=== PATIENT | female | born 1985 | race Caucasian/White ===

== ENCOUNTER 2024-04-16 19:15 | Day surgery (SDC) | payer BC, SELFPAY ==
[2024-04-16 19:16] VITALS: BMI 34.9
--- NOTE | 2024-04-16 19:33 | EKG_ITS ---
[facility] Test Date: 2024-04-16 Pat Name: GUSTABO HERNANDEZ Department: Room: - Gender: Female [employer] Builder: : 1985 Requested By: Alf Mcgarry Order Number: [id number] Reading MD: Alf Mcgarry Measurements Intervals [place] Rate: 93 P: 68 LA: 153 QRS: 24 QRSD: 89 T: 47 QT: 357 QTc: 446 Interpretive Statements SINUS RHYTHM NONSPECIFIC ST & T-WAVE ABNORMALITY Compared to ECG 11/14/2021 09:30:07 Sinus tachycardia no longer present T-wave abnormality still present /store/S0/[id number].pdf
--- NOTE | 2024-04-16 19:39 | XR_ITS ---
Examination: CT abdomen and pelvis without contrast. Coronal 3-D reconstructions. Sagittal 2-D reconstructions. Date and time of exam:April 16, 2024 at 2138 hrs. Indications: Onset right-sided flank pain beginning last night CTDI: vol (mGy): 12.9 DLP: (mGycm): 848 Technique: Axial images of the abdomen have been obtained, 3 mm slice thickness Intravenous contrast material has not been administered. Low dose protocols were performed. One or more of the following dose reduction techniques were used; automated exposure control, adjustment of the mA and/or KV according to patient size, use of iterative reconstruction technique. Findings: No focal liver or splenic lesions Cholelithiasis No pancreatic or adrenal mass No renal or ureteral calculi, no hydronephrosis Aorta normal size Absent appendix 8mm fat-containing umbilical hernia No bowel obstruction or diverticulitis Anteverted uterus Urinary bladder intact No adnexal mass Impression: Cholelithiasis, recommend gallbladder sonography to exclude gallbladder wall thickening No renal or ureteral calculi, no hydronephrosis Absent appendix No bowel obstruction or diverticulitis
--- NOTE | 2024-04-16 19:40 | PD.EDRME ---
Rapid Medical Screening Exam RME Arrival date/time: 04/16/24 19:15 39F with history of PE (likely COVID-induced and no longer on AC) presents to ED with 2 days of R flank pain and dysuria. While there is some SOB, she think it's from the pain. It feels different than when she had the PE. Chief Complaint: Back Pain/Injury
[2024-04-16 19:42] VITALS: BP 150/92; PULSE 100; RESP 18; TEMP 37.1; O2SAT 98
[2024-04-16] MEDS: KETOROLAC INJ 60 MG/2 ML VIAL IM (19:54)
[2024-04-16 20:04] LABS: Basophils # (Auto) 0.1 Thou/mm3 (0.0-0.2); Basophils % (Auto) 0 % (0-2.5); Eosinophils # (Auto) 0.1 Thou/mm3 (0.0-0.5); Eosinophils % (Auto) 1 % (0-10); Hematocrit 31.3 % (36.0-46.0); Hemoglobin 9.5 g/dL (12.0-16.0); Immature Granulocytes % (Auto) 0 % (0-0); Immature Granulocytes Auto 0.04 Thou/mm3 (0.00-0.00); Lymphocytes # (Auto) 3.8 Thou/mm3 (1.0-4.8); Lymphocytes % (Auto) 29 % (10-50); Mean Corpuscular HGB Conc 30.4 g/dl (31.0-37.0); Mean Corpuscular Hemoglobin 22.5 pg (25.0-35.0); Mean Corpuscular Volume 74 fL (80-100); Monocytes # (Auto) 0.8 Thou/mm3 (0.0-0.8); Monocytes % (Auto) 6 % (0-12); Neutrophils # (Auto) 8.6 Thou/mm3 (1.8-7.7); Neutrophils % (Auto) 64 % (37-80); Nucleated Red Blood Cell % 0 /100 WBC (0); Platelet Count 429 Thou/mm3 (140-440); RDW Standard Deviation 44.5 fL (36.4-46.3); Red Blood Count 4.23 Miln/mm3 (4.00-5.20); White Blood Count 13.4 Thou/mm3 (3.6-11.0)
[2024-04-16 20:27] LABS: Alanine Aminotransferase 61 U/L (10-49); Albumin, Serum 4.6 gm/dL (3.5-5.0); Albumin/Globulin Ratio 1.5 (1.2-2.2); Alkaline Phosphatase 84 U/L (46-116); Anion Gap 7 (7-16); Aspartate Amino Transferase 36 U/L (0-34); BUN/Creatinine Ratio 11 Ratio (12-20); Bilirubin,Total 0.6 mg/dL (0.3-1.2); Blood Urea Nitrogen 10 mg/dL (9-23); Calcium 9.4 mg/dL (8.3-10.6); Calcium (Corrected) 9.4 mg/dL (8.5-10.1); Carbon Dioxide 28.1 mMol/L (20.0-31.0); Chloride 104 mMol/L (98-107); Creatinine (Component) 0.9 mg/dL (0.6-1.3); Estimated Creatinine Clearance 96.7 mL/min (>60); Globulin 3.1 gm/dL (2.3-3.5); Glucose 132 mg/dL (74-106); Lipase 32 U/L (12-53); Osmolality,Calculated 278 (275-295); Potassium 3.4 mMol/L (3.4-5.1); Sodium 139 mMol/L (136-145); Total Protein 7.7 gm/dL (5.7-8.2); eGFR > 60 See Note
[2024-04-16 20:35] LABS: Collection Type, Urine Clean Catch
[2024-04-16 20:47] LABS: HCG Qualitative,Urine Negative
[2024-04-16 20:49] LABS: Bacteria,Urine Rare; Bilirubin,Urine Negative (Negative); Blood,Urine Trace (Negative); Clarity,Urine Clear (Clear/Hazy); Color,Urine Colorless (Lt Yel-Yel); Culture Indicated,Urine Not Indicated; Glucose, Urine Negative (Negative); Ketones,Urine Negative (Negative); Leukocyte Esterase,Urine Positive (Negative); Nitrite,Urine Negative (Negative); PH,Urine 6.5 (5.0-7.0); Protein,Urine Negative (Neg - Trace); RBC,Urine 2 /hpf (0-3); Specific Gravity,Urine 1.004 (1.001-1.035); Squamous Epithelial Cell,Urine 1 /hpf (0-5); Urobilinogen,Urine Negative mg/dL (0.0-1.0); WBC,Urine 7 /hpf (0-5)
--- NOTE | 2024-04-16 22:38 | XR_ITS ---
Examination: Abdomen sonogram, Limited Date and time of exam: April 16, 2024 1135 hrs. Indications: Onset right upper abdominal pain today Technique: Real-time knutson scale transabdominal sonographic images of the upper abdomen obtained. Findings: Cholelithiasis Gallbladder wall is thickened 0.6 cm Common bile duct 0.5 cm no stones Pancreas obscured by bowel gas Liver 20.1 cm fatty infiltration Normal hepatopedal portal venous oh Patent IVC Impression: Acute calculus cholecystitis No common bile duct stones Moderate hepatomegaly
[2024-04-16 23:15] VITALS: BP 128/102; PULSE 92; RESP 17; TEMP 36.6; O2SAT 97
--- NOTE | 2024-04-16 23:24 | EDNOTE_ITS ---
ED Back Injury Pain RME/HPI General Chief Complaint: Back Pain/Injury Stated Complaint: RT BACK/SIDE PAIN X 2DAYS Arrival date/time: 04/16/24 19:15 RME / HPI RME / HPI Narrative: 04/16/24 19:15 39F with history of PE (likely COVID-induced and no longer on AC) presents to ED with 2 days of R flank pain and dysuria. While there is some SOB, she think it's from the pain. It feels different than when she had the PE. ------ Dr. Mcdonald?s Main ED Evaluation: 39yo female presents to the ED for a chief complaint of right flank pain x 2 days. Patient reports associated dysuria. She states her symptoms feel similar to when she had a UTI and was unable to get comfortable at home, so she came in for evaluation. She denies any fever, chills, N/V/D, cough, chest pain or any other associated symptoms. She is not on any medications. No known allergies. Patient states her pain subsided when she was given pain medications here, but endorses it is now starting to return. Related Data Home Medications ?Medication ?Instructions ?Recorded ?Confirmed No Known Home Medications 04/17/24 04/17/24 Allergies Allergy/AdvReac Type Severity Reaction Status Date / Time No Known Allergies Allergy Verified 11/15/22 08:58 Review of Systems Review of Systems Systems Reviewed: All systems reviewed, normal except as documented Past Medical History Past Medical History NEUROLOGIC: Negative Neurological Disorders CARDIAC: Positive Cardiac Disorders ([id number] fluid around the heart); Negative Congestive Heart Failure RESPIRATORY: Negative Chronic Obstructive Pulmonary Disease (COPD) or Asthma GASTROINTESTINAL: Negative Gastrointestinal Disorders or Hepatitis GENITOURINARY: Negative Genitourinary Disorders or Renal Disease REPRODUCTIVE: Positive Previous Pregnancies; Negative Endometriosis, Genital Herpes, Gonorrhea, Pelvic Inflammatory Disease, Syphilis or Uterine Prolapse MUSCULOSKELETAL: Positive Musculoskeletal Disorders and Fractures (left arm surgery) ENT: Negative Cataracts ENDOCRINE: Negative Endocrine Disorders, Diabetes Mellitus Type 1 or Diabetes Mellitus Type 2 HEMATOLOGIC: Negative Blood Disorders or Sickle Cell Disease PSYCHO/SOCIAL: Positive Depression OTHER HISTORY: Positive Chicken Pox; Negative Hospitalization, Autoimmune Disease, Shingles, Falls, Blood Transfusions, Anesthesia Reactions, Organ Transplant, MRSA, VRSA, Vancomycin- Resistant Enterococci, Human Immunodeficiency Virus (HIV), Measles, Mumps, Rubella (Grenadian Measles), Pertussis, Clostridium Difficile or Cancer Family History FAMILY HISTORY: Positive Family Cancer (paternal grandfather- cancer, maternal grandmother -cancer); Negative Family Psychiatric Problems, Family Respiratory Disorders, Family Cardiac Disorders, Family Gastrointestinal Problems or Family Anesthesia Reaction Surgical History SURGICAL: Positive Abdominal Surgery and Tubal Ligation (2019); Negative Cardiac Surgery, Endocrine Surgery, Thyroidectomy, Ear Surgery, Tym panostomy Tube, Eye Surgery, Nose Surgery, Oral Surgery, Tonsillectomy, Adenoidectomy, Cochlear Implant, Corneal Transplant, Throat Surgery, Tracheostomy, Joint Replacement, Neurologic Surgery, Brain Shunt, Mastectomy, Lumpectomy, Section or Organ Transplant Social History SMOKING STATUS: Never smoker ED Exam Narrative Physical exam: GENERAL APPEARANCE: alert and oriented x 4, well-developed, well-nourished, no acute distress VITALS: All vitals were reviewed and the pulse ox is 97% on room air, which is normal according to my interpretation. HEENT: Normocephalic, atraumatic; pupils equal, round, reactive to light; EOMI; mucous membranes pink, moist; oropharynx clear NECK: Supple LUNGS: CTABL; no wheezes, no rales, no rhonchi HEART: Regular rate, regular rhythm; normal S1, S2; no murmurs ABDOMEN: non distended; normal BS; soft, mild epigastric tenderness, no guardi ng, no rebound; no masses, no organomegaly, no hernia BACK: mild right CVA tenderness EXTREMITIES: atraumatic; no edema NEUROLOGIC: awake; alert and oriented x4; cranial nerves II-XII grossly intact; no focal sensory or motor deficits PSYCHIATRIC: appropriate mood and affect SKIN: warm, dry, normal color; no rashes Course Course Course Narrative: 2335: Patient states her right flank pain is returning. Dilaudid ordered. Rocephin ordered for UTI. Quality Measures none Orders Category Date Time Status EKG (ED ONLY) *Do not use* NOW Care 04/16/24 19:[address] abdomen pelvis wo con Stat Exams 04/16/24 19:39 Completed EKG (ED Only) Stat Exams 04/16/24 19:33 Draft US gall bladder Stat Exams 04/16/24 22:38 Completed CBC Stat Lab 04/16/24 19:48 Completed CMP [Comprehensive Metabolic Panel] Stat Lab 04/16/24 19:48 Completed HCG Qualitative,Urine Stat Lab 04/16/24 20:26 Completed Lipase Stat Lab 04/16/24 19:48 Completed Urinalysis, C/S if Indicated Stat Lab 04/16/24 20:26 Completed HYDROmorphone INJ [Dilaudid Inj] Med 04/16/24 23:45 Discontinued 0.5 mg IVP PRN HYDROmorphone INJ [Dilaudid Inj] Med 04/16/24 23:49 Discontinued 0.5 mg IVP X1 ONE Ketorolac Inj [Toradol Inj] Med 04/16/24 19:39 Discontinued 60 mg IM X1 ONE Ondansetron Inj [Zofran Inj] Med 04/16/24 23:34 Discontinued 4 mg IV X1 ONE Piper/Tazo Inj [Zosyn Inj] 3.375 gm Med 04/17/24 00:11 Discontinued Sodium Chloride 0.9% (P) [Ns 0.9% (P)] 50 ml IV X1 Sodium Chloride 0.9% 1000 ml [Ns] 1,000 ml Med 04/17/24 00:11 Discontinued IV 999 mls/hr cefTRIAXone/D5w 1gm IV premix [Rocephin/D5w 1gm IV Med 04/16/24 23:35 Discontinued premix] 50 ml IV X1 Vital Signs Vital signs: Vital Signs Temperature 98.8 F 04/16/24 19:42 Pulse Rate 100 04/16/24 19:42 Respiratory Rate 18 04/16/24 19:42 Blood Pressure 150/92 H 04/16/24 19:42 Pulse Oximetry (%) 98 04/16/24 19:42 Oxygen Delivery Method Room Air 04/16/24 19:42 Back Pain / Injury Patient data External records reviewed:: [facility] previous records (Per chart review, patient has no relevant previous ED visits or admissions to this facility.) Clinical information provided by:: patient Social determinants that could affect healthcare access:: none Patient has the following chronic illnesses:: none How is presenting disease/condition affected by chronic disease/condition?: no chronic disease Evaluation data The following diagnostics were reviewed and interpreted by me:: lab results, radiology exam(s) and EKG tracing(s) Lab and/or radiology exams considered but not ordered:: none Interpretation Summary: WBC count is elevated at 13.4, HnH is stable at 9.5/31.3, AST and ALT are slightly elevated, Lipase is normal, HCG is negative, UA shows 7 WBCs and rare bacteria, according to my interpretation. EKG done at 1940, NSR, rate of 93, normal axis, no ectopy, generalized ST abnormalities, no STEMI, according to my interpretation. ---- [place] [facility] Signed Patient: GUSTABO HERNANDEZ. Record#: [id number] Birthdate: 1985 Age/Sex: 39 / F Location: [facility] Attending Dr: Ordering Physician: Alf Mcgarry PA-C Date of Service: 04/16/24 Procedure(s): CT abdomen pelvis wo con Accession Number(s): [id number] cc: María Whiting NP; Dong Chaney MD; Alf Mcgarry PA-C~ Examination: CT abdomen and pelvis without contrast. Coronal 3-D reconstructions. Sagittal 2-D reconstructions. Date and time of exam:April 16, 2024 at 2138 hrs. Indications: Onset right-sided flank pain beginning last night CTDI: vol (mGy): 12.9 DLP: (mGycm): 848 Technique: Axial images of the abdomen have been obtained, 3 mm slice thickness Intravenous contrast material has not been administered. Low dose protocols were performed. One or more of the following dose reduction techniques were used; automated exposure control, adjustment of the mA and/or KV according to patient size, use of iterative reconstruction technique. Findings: No focal liver or splenic lesions Cholelithiasis No pancreatic or adrenal mass No renal or ureteral calculi, no hydronephrosis Aorta normal size Absent appendix 8mm fat-containing umbilical hernia No bowel obstruction or diverticulitis Anteverted uterus Urinary bladder intact No adnexal mass Impression: Cholelithiasis, recommend gallbladder sonography to exclude gallbladder wall thickening No renal or ureteral calculi, no hydronephrosis Absent appendix No bowel obstruction or diverticulitis Dictated By: Dong Chaney MD Signed By: <Electronically signed by Dong Chaney MD in OV> 04/16/249 ------ [facility] Report Signed Patient: GUSTABO HERNANDEZ. Record#: [id number] Birthdate: 1985 Age/Sex: 39 / F Location: [facility] Attending Dr: Ordering Physician: Ceci Zelaya Date of Service: 04/16/24 Procedure(s): US gall bladder Accession Number(s): [id number] cc: Ceci Zelaya; Maraí Whiting [employer]; Dong Chaney MD~ Examination: Abdomen sonogram, Limited Date and time of exam: April 16, 2024 1135 hrs. Indications: Onset right upper abdominal pain today Technique: Real-time knutson scale transabdominal sonographic images of the upper abdomen obtained. Findings: Cholelithiasis Gallbladder wall is thickened 0.6 cm Common bile duct 0.5 cm no stones Pancreas obscured by bowel gas Liver 20.1 cm fatty infiltration Normal hepatopedal portal venous oh Patent IVC Impression: Acute calculus cholecystitis No common bile duct stones Moderate hepatomegaly Dictated By: Dong Chaney MD Signed By: <Electronically signed by Dong Chaney MD in OV> 04/17/24 0002 Medications / Prescriptions Medications or Prescriptions considered but not ordered:: none Medication administrations:: Medication Administration History Acetaminophen (Acetaminophen 325 Mg Tablet) 650 mg PO Q6H PRN PRN Reason: PAIN OR FEVER > 101 Stop: 05/17/24 00:39 Hydrocodone Bitart/Acetaminophen (Hydrocodone/Apap 10/325 Tab) 1 tab PO Q4H PRN PRN Reason: PAIN SCALE 4-6 (Moderate Stop: 04/22/24 00:39 Sodium Chloride (Ns) 1,000 mls @ 75 mls/hr IV .[id number] [facility] Stop: 04/17/24 14:04 Last Admin: 04/17/24 01:46 Dose: 75 mls/hr Documented By: TC Piperacillin/Tazobactam/Dextrose (Zosyn) 3.375 gm in 50 mls @ 12.5 mls/hr IV Q8HR [facility] Stop: 04/24/24 05:59 Last Admin: 04/17/24 05:35 Dose: 12.5 mls/hr Documented By: GD Morphine Sulfate (Morphine Sulf Inj 10 Mg/Ml Vial) 2 mg IVP Q4H PRN PRN Reason: PAIN SCALE 7-10 (Severe Stop: 04/22/24 00:39 Ondansetron HCl (Ondansetron Inj 2 Mg/Ml Inj 2 Ml) 4 mg IV Q6H PRN; Protocol PRN Reason: NAUSEA OR VOMITING Stop: 05/17/24 00:39 Pantoprazole Sodium (Pantoprazole Inj 40 Mg Vial) 40 mg IVP QDAY [facility] Stop: 05/17/24 08:59 Sennosides (Senna Tablet) 1 tab PO QDAY THAO; Protocol Stop: 05/17/24 08:59 Discontinued Medications Hydromorphone HCl (Hydromorphone Inj 2 Mg/Ml Vial) 0.5 mg IVP PRN [facility] Stop: 04/21/24 23:44 Hydromorphone HCl (Hydromorphone Inj 2 Mg/Ml Vial) 0.5 mg IVP X1 ONE Stop: 04/16/24 23:50 Last Admin: 04/16/24 23:56 Dose: 0.5 mg Documented By: TC Ceftriaxone Sodium/Dextrose (Rocephin/D5w 1gm Iv Premix) 50 mls @ 100 mls/hr IV X1 ONE Stop: 04/17/24 00:04 Last Infusion: 04/17/24 00:25 Dose: Infused Documented By: Admin: 04/16/24 23:55 Dose: 100 mls/hr Documented By: TC Piperacillin Sod/Tazobactam (Sod 3.375 gm/ Sodium Chloride) 50 mls @ 100 mls/hr IV X1 ONE Stop: 04/17/24 00:40 Last Admin: 04/17/24 01:20 Dose: Not Given Documented By: CVL Non-Admin Reason: Duplicate Medication on eMAR Sodium Chloride (Ns) 1,000 mls @ 999 mls/hr IV .Q1H1M ONE Stop: 04/17/24 01:11 Last Infusion: 04/17/24 03:06 Dose: Infused Documented By: Admin: 04/17/24 01:46 Dose: 999 mls/hr Documented By: TC Piperacillin Sod/Tazobactam (Sod 3.375 gm/ Sodium Chloride) 50 mls @ 100 mls/hr IV X1 ONE Stop: 04/17/24 01:29 Last Infusion: 04/17/24 02:37 Dose: Infused Documented By: Admin: 04/17/24 02:00 Dose: 100 mls/hr Documented By: CVL Ketorolac Tromethamine (Ketorolac Inj 60 Mg/2 Ml Vial) 60 mg IM X1 ONE Stop: 04/16/24 19:40 Last Admin: 04/16/24 19:54 Dose: 60 mg Documented By: AILEEN Ondansetron HCl (Ondansetron Inj 2 Mg/Ml Inj 2 Ml) 4 mg IV X1 ONE; Protocol Stop: 04/16/24 23:35 Last Admin: 04/16/24 23:56 Dose: 4 mg Documented By: TC see above Consultations Consultation(s) initiated? (list below): Yes Consultation #1 (Physician, Specialty, Details): Discussed case with [Dr. Shea] from [general surgery] regarding [consultation]. Discussed patients ED course, exam findings, labs, and radiology results. States she will do surgery in the morning. Time: 00:15 Consultation #2 (Physician, Specialty, Details): Discussed case with [Dr. Miller, attending Dr. Moses] from Hospitalist service regarding admission. Discussed patients ED course, exam findings, labs, and radiology results. The Hospitalist [agrees] to accept the patient for admission. Time: 00:19 Diagnosis Differential diagnosis back pain/injury: pyelonephritis and other (UTI, cystitis, cholelithiasis, cholecystitis) Most likely diagnosis given after review of the tests above:: see below Admission Indicated Admission indicated?: indicated Admission Request Was there a request for admission?: Yes Admission Attestation Admission request attestation: Discussed case with [] from Hospitalist service regarding admission. Discussed patients ED course, exam findings, labs, and radiology results. The Hospitalist [agrees,declines] to accept the patient for admission. Disposition Plan Disposition Plan: Admit Critical Care Time Critical Care Time Critical Care Time: Yes Total Critical Care Time (min.): 35 Attestation: The high probability of sudden, clinically significant deterioration in the patient?s condition required the highest level of my preparedness to intervene urgently. The services I provided to this patient were to treat and/or prevent clinically significant deterioration. Services included the following: chart data review, reviewing nursing notes and/or old charts, documentation time, contamination consultant collaboration regarding findings and treatment options, medication orders and management, direct patient care, vital sign assessments and ordering, interpreting and reviewing diagnostic studies and lab tests. Aggregate critical care time includes only time during which I was engaged in work directly related to the patient?s care, as described above, whether at bedside or elsewhere in the Emergency Department. It did not include time spent performing other reported procedures or the services of residents, students, nurses or physician assistants. Discharge Plan Plan Patient Disposition: Admit Acute Care w/in Hospital Problem List Clinical Impression: Acute calculous cholecystitis, Pyelonephritis, Urinary tract infection
[2024-04-16 23:30] VITALS: BP 128/102; PULSE 88; RESP 16; O2SAT 97
[2024-04-16] MEDS: cefTRIAXone/D5w 1gm IV premix 50 ML IV (23:55)
[2024-04-16] MEDS: HYDROmorphone INJ 2 MG/ML VIAL 0.5 MG IVP (23:56)
[2024-04-16] MEDS: ONDANSETRON INJ 2 MG/ML INJ 2 ML 4 MG IV (23:56)
[2024-04-17] VITALS (19 sets, daily range): BP systolic 117–169; BP diastolic 57–93; PULSE 75–108; RESP 13–98; TEMP 36–36.7; O2SAT 94–100; BMI 43.2
--- NOTE | 2024-04-17 01:02 | PD.RESHP ---
Documentation for date of: 04/17/24 [facility] History of Present Illness History of present illness: Meaghan Condon is a 39-year-old female with a past medical history of pulmonary embolism (2021) who presents with right sided abdominal pain. Patient states that pain started on morning and gradually worsened to the point where she could no longer tolerate and presented to the ED. She does not normally have this pain and it is not associated with food consumption. Does endorse 1 episode of nausea and nonbloody emesis, as well as nonbloody diarrhea. Denies fever, chills, sweats. Of note, also endorses dysuria that started 1 week ago. Took antibiotics prescribed to her daughter also for UTI and symptoms initially improved but recurred. ED course: Vital stable WBC 13.4 Hgb 9.5, T. bili and ALP WNL, AST and ALT mildly elevated UA: Clear, LE positive In ED received ceftriaxone and 0.5 mg IV hydromorphone. PMHx: pulmonary embolism in 2021 Medications: none PSHx: appendectomy, tubal ligation, breast implants Review of Systems Review of Systems Systems Reviewed: All systems reviewed, normal except as documented Exam Vital Signs Temp Pulse Resp BP Pulse Ox O2 Del Method 97.9 F 88 16 128/102 H 97 Room Air 04/16/24 23:15 04/16/24 23:30 04/16/24 23:30 04/16/24 23:30 04/16/24 23:30 04/16/24 23:30 Narrative Exam General: AOx3, no acute distress, able to speak full sentences HEENT: NC/AT, mucous membranes moist, bilateral sclera anicteric Cardiovascular: regular rate and rhythm, S1/S2 present, no murmurs appreciated Pulmonary: clear to auscultation bilaterally, no rales/rhonchi/wheezes Abdominal: RUQ tender to palpation; soft, non-distended, no rebound/guarding Musculoskeletal: normal ROM, no peripheral edema Skin: warm and dry, intact, no rashes Neuro: CN II-XII intact, no focal deficits Results: Labs 04/16/24 19:48 04/16/24 19:48 Labs: Short CBC 04/16/24 Range/Units 19:48 WBC 13.4 H (3.6-11.0) Thou/mm3 Hgb 9.5 L (12.0-16.0) g/dL Hct 31.3 L (36.0-46.0) % Plt Count 429 (140-440) Thou/mm3 BMP 04/16/24 19:48 Sodium 139 Potassium 3.4 Chloride 104 Carbon Dioxide 28.1 BUN 10 Creatinine 0.9 Glucose 132 H Calcium 9.4 Liver Function 04/16/24 Range/Units 19:48 Total Bilirubin 0.6 (0.3-1.2) mg/dL AST 36 H (0-34) U/L ALT 61 H (10-49) U/L Alkaline Phosphatase 84 (46-116) U/L Albumin 4.6 (3.5-5.0) gm/dL Urine 04/16/24 Range/Units 20:26 Urine Color Colorless A (Lt Yel-Yel) Urine Clarity Clear (Clear/Hazy) Urine pH 6.5 (5.0-7.0) Ur Specific [place] 1.004 (1.001-1.035) Urine Protein Negative (Neg - Trace) Urine Glucose (UA) Negative (Negative) Quality Measures Quality Measures none Medications Home Medications and Allergies Home Medications ?Medication ?Instructions ?Recorded ?Confirmed ?Type No Known Home Medications 04/17/24 04/17/24 History Allergies Allergy/AdvReac Type Severity Reaction Status Date / Time No Known Allergies Allergy Verified 11/15/22 08:58 Visit Medications Acetaminophen (Acetaminophen 325 Mg Tablet) 650 mg PO Q6H PRN PRN Reason: PAIN OR FEVER > 101 Stop: 05/17/24 00:39 Hydrocodone Bitart/Acetaminophen (Hydrocodone/Apap 10/325 Tab) 1 tab PO Q4H PRN PRN Reason: PAIN SCALE 4-6 (Moderate Stop: 04/22/24 00:39 Sodium Chloride (Ns) 1,000 mls @ 999 mls/hr IV .Q1H1M ONE Stop: 04/17/24 01:11 Sodium Chloride (Ns) 1,000 mls @ 75 mls/hr IV .[id number] THAO Stop: 04/17/24 14:04 Piperacillin/Tazobactam/Dextrose (Zosyn) 3.375 gm in 50 mls @ 100 mls/hr IV Q8HR THAO Stop: 04/24/24 00:44 Piperacillin Sod/Tazobactam (Sod 3.375 gm/ Sodium Chloride) 50 mls @ 100 mls/hr IV X1 ONE Stop: 04/17/24 01:29 Morphine Sulfate (Morphine Sulf Inj 10 Mg/Ml Vial) 2 mg IVP Q4H PRN PRN Reason: PAIN SCALE 7-10 (Severe Stop: 04/22/24 00:39 Ondansetron HCl (Ondansetron Inj 2 Mg/Ml Inj 2 Ml) 4 mg IV Q6H PRN; Protocol PRN Reason: NAUSEA OR VOMITING Stop: 05/17/24 00:39 Pantoprazole Sodium (Pantoprazole Inj 40 Mg Vial) 40 mg IVP QDAY THAO Stop: 05/17/24 08:59 Sennosides (Senna Tablet) 1 tab PO QDAY THAO; Protocol Stop: 05/17/24 08:59 Discontinued Medications Hydromorphone HCl (Hydromorphone Inj 2 Mg/Ml Vial) 0.5 mg IVP PRN THAO Stop: 04/21/24 23:44 Hydromorphone HCl (Hydromorphone Inj 2 Mg/Ml Vial) 0.5 mg IVP X1 ONE Stop: 04/16/24 23:50 Last Admin: 04/16/24 23:56 Dose: 0.5 mg Ceftriaxone Sodium/Dextrose (Rocephin/D5w 1gm Iv Premix) 50 mls @ 100 mls/hr IV X1 ONE Stop: 04/17/24 00:04 Last Admin: 04/16/24 23:55 Dose: 100 mls/hr Piperacillin Sod/Tazobactam (Sod 3.375 gm/ Sodium Chloride) 50 mls @ 100 mls/hr IV X1 ONE Stop: 04/17/24 00:40 Ketorolac Tromethamine (Ketorolac Inj 60 Mg/2 Ml Vial) 60 mg IM X1 ONE Stop: 04/16/24 19:40 Last Admin: 04/16/24 19:54 Dose: 60 mg Ondansetron HCl (Ondansetron Inj 2 Mg/Ml Inj 2 Ml) 4 mg IV X1 ONE; Protocol Stop: 04/16/24 23:35 Last Admin: 04/16/24 23:56 Dose: 4 mg Assessment & Plan Plan Meaghan Condon is a 39-year-old female with a past medical history of pulmonary embolism (2021) who is admitted for acute calculous cholecystitis. #Acute calculus cholecystitis #Cholelithiasis Presents with right upper quadrant pain and found to have acute calculus cholecystitis on imaging. WBC 13.4, T. bili and ALP WNL. ? General Surgery consulted, appreciate recommendations ? N.p.o. ? Zosyn 3.375 g IV every 8 hours ? 1 L NS at 75 mL/h ? Morphine 2 mg IV every 4 hours as needed ? Follow-up blood cultures #Dysuria #Urinary tract infection UA: LE positive with mild pyuria, otherwise unremarkable ? Antibiotics as above ? Follow-up urine culture #Microcytic anemia, chronic Denies bloody emesis, melena, hematochezia, hematuria. Consider iron panel. Initial Hgb 9.5, anemia dates back to 2017. ? Monitor CBC and for signs of bleeding Hospital management: Disposition: med surg Fluids: NS at 75 mL/hr Diet: NPO now, pending cholecystectomy Lines: peripheral DVT prophylaxis: SCDs GI prophylaxis: pantoprazole 40 mg IV CODE STATUS: full code ----- Plan discussed with attending physician Dr. Aurelia Miller MD PGY-1 Internal Medicine Attending Provider Attestation/Addendum I reviewed labs, imaging, EKG, home medications and prior available records. Face to face evaluation was performed by me. I have personally examined the patient and discussed assessment and plan with the IM team. I reviewed the resident note and agree with the plan with exceptions as below. 39-year-old female with remote history of PE who is currently off anticoagulation who presented with a chief complaint of right-sided abdominal pain that radiates to her right flank and associated with nausea and vomiting. She was found to have acute calculus cholecystitis. Acute calculus cholecystitis: Consulted surgery: Recommended surgical intervention. N.p.o. after midnight. Continue IV hydration. Start IV Zosyn. Management of nausea/pain as needed. Obesity grade I: This is a risk factor of her cholecystitis. Outpatient weight management.
[2024-04-17] MEDS: SODIUM CHLORIDE 0.9% 1000 ML 1,000 ML 75 ML IV (01:46)
[2024-04-17] MEDS: SODIUM CHLORIDE 0.9% 1000 ML 1,000 ML 999 ML IV (01:46)
[2024-04-17] MEDS: PIPER/TAZO INJ 3.375 GM in SODIUM CHLORIDE 0.9% (P) 50 ML IV (02:00)
--- NOTE | 2024-04-17 03:38 | PC.NURSE ---
Telephone report received from GILBERT Umana from ER.
--- NOTE | 2024-04-17 03:54 | PC.NURSE ---
Patient arrived to unit via wheelchair at 0350 with GILBERT Umana from ED..
[2024-04-17] MEDS: PIPER/TAZO 3.375 GM 3.375 GM/50 ML BAG IV (05:35)
[2024-04-17 06:54] LABS: Basophils % (Auto) 0 % (0-2.5); Eosinophils # (Auto) 0.1 Thou/mm3 (0.0-0.5); Eosinophils % (Auto) 1 % (0-10); Hematocrit 29.3 % (36.0-46.0); Immature Granulocytes % (Auto) 0 % (0-0); Immature Granulocytes Auto 0.03 Thou/mm3 (0.00-0.00); Lymphocytes # (Auto) 3.7 Thou/mm3 (1.0-4.8); Lymphocytes % (Auto) 37 % (10-50); Mean Corpuscular HGB Conc 29.7 g/dl (31.0-37.0); Mean Corpuscular Hemoglobin 22.1 pg (25.0-35.0); Mean Corpuscular Volume 75 fL (80-100); Monocytes # (Auto) 0.8 Thou/mm3 (0.0-0.8); Monocytes % (Auto) 8 % (0-12); Neutrophils # (Auto) 5.3 Thou/mm3 (1.8-7.7); Neutrophils % (Auto) 53 % (37-80); Nucleated Red Blood Cell % 0 /100 WBC (0); Platelet Count 351 Thou/mm3 (140-440); RDW Standard Deviation 45.1 fL (36.4-46.3); Red Blood Count 3.93 Miln/mm3 (4.00-5.20)
[2024-04-17 07:02] LABS: Hemoglobin 8.7 g/dL (12.0-16.0)
[2024-04-17 07:15] LABS: Alanine Aminotransferase 49 U/L (10-49); Albumin, Serum 4.1 gm/dL (3.5-5.0); Albumin/Globulin Ratio 1.5 (1.2-2.2); Alkaline Phosphatase 69 U/L (46-116); Anion Gap 6 (7-16); Aspartate Amino Transferase 35 U/L (0-34); BUN/Creatinine Ratio 15 Ratio (12-20); Bilirubin,Total 0.6 mg/dL (0.3-1.2); Blood Urea Nitrogen 12 mg/dL (9-23); Calcium 8.8 mg/dL (8.3-10.6); Calcium (Corrected) 8.8 mg/dL (8.5-10.1); Carbon Dioxide 27.5 mMol/L (20.0-31.0); Chloride 106 mMol/L (98-107); Cholesterol 136 mg/dL (132-200); Creatinine (Component) 0.8 mg/dL (0.6-1.3); Estimated Creatinine Clearance 122.5 mL/min (>60); Globulin 2.7 gm/dL (2.3-3.5); Glucose 113 mg/dL (74-106); HDL Cholesterol 34 mg/dL (40-60); LDL Cholesterol,Calculated 74 mg/dL (0-130); Osmolality,Calculated 278 (275-295); Potassium 3.5 mMol/L (3.4-5.1); Sodium 139 mMol/L (136-145); Total Protein 6.8 gm/dL (5.7-8.2); Triglycerides 139 mg/dL (30-150); eGFR > 60 See Note
[2024-04-17 07:33] LABS: Thyroid Stimulating Hormone 3.16 uIU/mL (0.55-4.78)
[2024-04-17] MEDS: PANTOPRAZOLE INJ 40 MG VIAL IVP (08:04)
[2024-04-17] MEDS: ACETAMINOPHEN 325 MG TABLET 650 MG PO (08:07)
--- NOTE | 2024-04-17 09:19 | PC.NURSE ---
Dr. Shea in to see patient
--- NOTE | 2024-04-17 09:27 | PD.SURCONS ---
HPI Consult details History of present illness: 39F presenting with abdominal pain. Patient reports symptoms began 2 nights ago, with severe pain in the epigastric/right upper quadrant region, associated with diarrhea. Yesterday she felt the pain progressed throughout the day prompting her to visit the ER. She denies any history of similar pain. Workup consistent with acute cholecystitis PMH: Obesity, pyelonephritis, bilateral pulmonary embolism in 2021 PSH: Appendectomy, tubal ligation Meds: None Allergies: NKDA Social history: Non-smoker Review of Systems Review of Systems ROS Unobtainable: All systems reviewed & no additional complaints except as documented Meds Home Medications and Allergies Home Medications ?Medication ?Instructions ?Recorded ?Confirmed ?Type No Known Home Medications 04/17/24 04/17/24 History Allergies Allergy/AdvReac Type Severity Reaction Status Date / Time No Known Allergies Allergy Verified 11/15/22 08:58 Exam Vital Signs Temp Pulse Resp BP Pulse Ox O2 Del Method 96.8 F 87 20 144/89 H 98 Room Air 04/17/24 07:39 04/17/24 07:39 04/17/24 07:39 04/17/24 07:39 04/17/24 07:39 04/17/24 07:39 Routine Respiratory Exam Respiratory: Present no resp distress Routine Abdominal Exam Abdominal: Present soft and tenderness (Moderate right upper quadrant tenderness, negative Cook sign); Absent distended, rebound or guarding Results Results: Laboratory Laboratory results: results reviewed Results: Imaging US - abdomen: report reviewed Assessment & Plan Plan 39F presenting with signs and symptoms of acute cholecystitis. I explained benefits/risks of surgery including need for conversion to open, bleeding, infection, and injury to nearby structures requiring further procedures or surgery which would require transfer to another hospital. Patient expressed understanding and agrees to proceed.
--- NOTE | 2024-04-17 09:43 | PC.NURSE ---
pt to surgery via [facility]
--- NOTE | 2024-04-17 10:53 | PD.SUROPNT ---
Date of Procedure 04/17/24 Pre Op Diagnosis Acute cholecystitis Post Op Diagnosis Same Procedure Laparoscopic cholecystectomy Findings Inflamed gallbladder with large gallstone Procedure Description After discussion of risks and benefits, patient was brought to the operating room, SCDs were placed and general anesthesia was induced. She had already received preoperative antibiotics and was prepped and draped in the usual sterile fashion. After timeout a supraumbilical incision was made and a Veress needle was placed through it. I attempted to confirm proper positioning with a drop test but the drop test did not show proper drainage of saline even after exchanging for a longer Veress needle. For that reason I opted to make an incision at the left upper quadrant approximately 2 fingerbreadths inferior to the costal margin. The Veress needle was placed and proper positioning was confirmed with a drop test. The abdomen was insufflated to 15 mmHg and at that point the Veress needle was exchanged for a 5 mm camera using a Visiport technique. There were no signs of injury from the point of entry. 4 additional ports were placed under direct vision, one 5 mm at the supraumbilical region, one 12 mm epigastrium, one 5 mm right subcostal and one 5 mm right anterior axillary line. Patient was placed in reverse Trendelenburg with left side down. The fundus of the gallbladder was grasped and retracted cephalad and the infundibulum was grasped and retracted laterally. The critical view of safety was achieved with blunt dissection and the cystic duct and cystic artery were clipped and transected in the usual fashion. The gallbladder was removed from the gallbladder bed using electrocautery and hemostasis of the gallbladder bed was achieved with electrocautery. The specimen was removed in an Endo Catch bag via the epigastric port and epigastric fascia was closed with 0 Vicryl suture using a Wily-Anival. Pneumoperitoneum was released and remaining ports were removed under direct vision. Incisions were irrigated and infiltrated with half percent Marcaine for a total of 30 cc. Incisions were closed with 4-0 Monocryl and reinforced with Dermabond. Patient was extubated and brought to PACU in stable condition Pathology / specimen Other (Gallbladder) Estimated Blood Loss 25 Surgeon Stephany Shea MD Surgical Staff Operation Date: 04/17/24 10:15 Case Staff Anesthesiologist: Prabhu Mtz RNmanager proposal: Donta Pink
--- NOTE | 2024-04-17 11:03 | SUR.PHASEI ---
1103 Patient arrived to recovery resting comfortably in [facility], on oxygen 8L via oxy mask, breathing unlabored, vital signs stable, denies pain, dressing intact to abdomen; dermabond, no bleeding noted, lung sounds clear upon auscultation, bilateral radial pulses present when palpated, report received from Kellie HUNT and Dr. Mtz
--- NOTE | 2024-04-17 11:32 | SUR.PHASEI ---
1132 patient eating ice chips
--- NOTE | 2024-04-17 12:03 | SUR.PHASEI ---
patient educated on using incentive spirometer verbal and printed education provided, patient able to to give return demonstration on proper use of incentive spirometer
--- NOTE | 2024-04-17 12:05 | SUR.PHASEI ---
1156 Report given to Анна HUNT, patient meets discharge criteria from recovery, awake and alert, breathing unlabored, vital signs stable, denies pain, dressing intact; no bleeding noted, patient drinking 7up; tolerating well denies nausea 1205 Patient transported via gurney to room 369 without incident
--- NOTE | 2024-04-17 12:15 | PC.NURSE ---
pt returned from surgery via [facility] s/p sudeep serna
[2024-04-17] MEDS: cefTRIAXone/D5w 1gm IV premix 50 ML IV (12:21)
--- NOTE | 2024-04-17 12:42 | ESDS_ITS ---
Planned Discharge Date 04/17/24 DS: Providers Provider Date of admission: 04/17/24 00:40 Primary care physician: María Whiting NP Admitting Provider: Demond Moses MD Attending Provider on Admission: Demond Moses MD Consults: 04/17/24 07:33 Consult to General Surgery Routine Comment: Acute Calculous Cholecystitis Consulting Provider: Stephany Shea Attending Provider on DC: Cuate Marti MD Discharging Provider: Cuate Marti MD DS: Diagnosis Problem List Completed Was Problem List Reviewed/Reconciled?: Yes Hospital Course Hospital Course Hospital course: Service: Internal Medicine ? ? Consults: General Surgery ? ? Procedures: Laproscopic Cholecystectomy ? ? Hospital Course: Ms. Meaghan Condon is a 39-year-old female with a past medical history of pulmonary embolism (2021) who presents with right sided abdominal pain. Patient states that she was in her usual state of health when her pain started on 04/16/2024. Her pain gradually worsened to the point where she could no longer tolerate and presented to the ED. Patient endorsed associated symptoms of nausea and nonbloody, non-billious vomiting, as well as nonbloody diarrhea. On initial workup in the ED, the patient was found to have a U/A notable for a mild puria and leuckocyte esterase positivity. Patient noted she did have dysuria and was subsequently treated with ceftriaxone. Patient underwent a abdominal U/S which revealed acute calculous cholecystitis. General surgery was consulted who recommended the patient be admitted for laproscopic cholecystectomy. Patient was kept NPO in anticipation of said surgery. Patient underwent successful laproscopic cholecystectomy on 04/17/24 with no noted comp lications. Patient was deemed safe and stable for discharge by general surgery service. Prior to discharge the patient was advised to follow up with primary care physician and general surgeon within 1-2 weeks of discharge. Patient was also advised to continue 3 days of cefpodoxime 200 mg twice daily for 3 days duration for continued treatment of UTI. All of the patients concerns and/or questions were answered with the patient verbalizing understanding prior to discharge. Strict return precautions were emphasized to the patient. Discharge Diagnoses: #Acute calculus cholecystitis #Cholelithiasis #Dysuria #Urinary tract infection #Microcytic anemia, chronic #Obesity Patient's case was discussed with supervising attending physician Dr. Chester Marti M.D. Internal Medicine PGY-3 Time Spent with Patient Time attestation: Total time spent providing and/or coordinating discharge services: Exam Vital Signs Temp Pulse Resp BP Pulse Ox O2 Del Method O2 Flow Rate 98.1 F 89 18 149/70 H 95 Room Air 3 04/17/24 11:48 04/17/24 12:00 04/17/24 12:00 04/17/24 12:00 04/17/24 12:00 04/17/24 07:39 04/17/24 11:33 Narrative Exam General: Not in any visible or apparent acute distress, well appearing, alert, pleasant and interactive HEENT: NC/AT, moist mucous membranes CVS: S1S2 Regular rate and rhythm, No murmurs, rubs or gallops Lungs: Normal respiratory effort, no wheezing rhonchi or rales, CTAB Abd: Soft, tenderness noted around surgical sites, no drainage noted Ext: No edema, warm well perfused, normal tone and ROM, strength and sensation intact, cap refill less than 2, +2 dp equal bilaterally Skin: Intact, abdominal surgical scars consistent with laproscopic cholecystectomy on abdomen noted Neuro: No gross focal neurological deficits Discharge Plan Plan Patient Disposition: HOME (Self Care) Patient condition on transfer: Stable Prescriptions/Referrals Prescriptions/Med Rec: New oxycodone-acetaminophen [Percocet] 5-325 mg tablet 1 tab PO Q6H MDD 6 tabs PRN (Reason: pain) Qty: 10 0RF cefpodoxime 200 mg tablet 200 mg PO BID 3 Days Qty: 6 0RF Rx Instructions: must administer with a meal/food Referrals: María Whiting NP [Primary Care Provider] - Stephany Shea MD [Physician] - (You will receive a phone call to confirm a follow-up appointment with me on May 04 at 11 AM) Patient/Caregiver Discharge Instructions Meds to Beds: No Discharge Activity: activity as tolerated Other Discharge Activity Instructions:: Avoid lifting objects greater than 10 pounds for 6 weeks You may resume showering in 2 days Your stitches have skin glue on them which will follow off on its own and does not need to be replaced Your stitches will not need to be removed Follow up with your primary care physician and general surgeon Dr. Shea within 1-[address] Stephany Shea [address] [address] If you develop worsening pain, nausea/vomiting, fever or jaundice please seek care in ER Take oxycodone-percocet 1 tab every 6 hours as needed for management of pain symptoms. Take Cefpodoxime 200 mg twice a day by mouth for 3 days for continued treatment of UTI. Education Materials: After Gallbladder Surgery, Preventing Surgical Site Infections Print Language: Turkmen Activity Restrictions/Additional Instructions: Avoid lifting objects greater than 10 pounds for 6 weeks You may resume showering in 2 days Your stitches have skin glue on them which will follow off on its own and does not need to be replaced Your stitches will not need to be removed Follow up with your primary care physician and general surgeon Dr. Shea within 1-[address] Stephany Shea [address] [place] [address] If you develop worsening pain, nausea/vomiting, fever or jaundice please seek care in ER Take oxycodone-percocet 1 tab every 6 hours as needed for management of pain symptoms. Take Cefpodoxime 200 mg twice a day by mouth for 3 days for continued treatment of UTI. Stand Alone Forms: Elva Award Info., Patient Portal Info Letter Discharge Order Discharge Orders: Discharge (Routine); Ordered 04/17/24 Ordered By: Cuate Marti Quality Discharge Quality Measures VTE prophylaxis Attestestation MD Attestation I have examined the patient, reviewed labs and imaging findings, discussed the case with the resident(s), and reviewed entered orders. I agree with the plan of care as outlined in this note. Dr. Case
== END 2024-04-17 15:47 | disposition home or self-care (01) ==
LOC: SERHOLD 04-17 01:50 → S3SX 04-17 07:10 → SERX 04-21 07:14 → S2EX 04-21 07:16 → S3SX 04-21 07:19
PROVIDERS: Physician Assistant; Student in an Organized Health Care Education/Training Program; Surgery; Emergency Provider Student in an Organized Health Care Education/Training Program; PCP Nurse Practitioner Family; Visit Provider Student in an Organized Health Care Education/Training Program
PROC: 0FT44ZZ Resection of Gallbladder, Percutaneous Endoscopic Approach (ICD-10-PCS; CPT 47562; principal; 2024-04-17 10:00)
DX: K80.00 Calculus of gallbladder with acute cholecystitis without obstruction (principal); Z86.711 Personal history of pulmonary embolism; D50.9 Iron deficiency anemia, unspecified; Z01.810 Encounter for preprocedural cardiovascular examination
CPT/HCPCS: 47562; 36415; 74176; 76705; 80053; 80061; 81001; 81025; 83690; 83735; 84443; 85025; 86850; 86900; 86901; 87040; 87086; 93005; 96365; 96372; 96375; 99291; A4217; A4649; J0696; J1100; J1885; J2371; J2405; J2470; J2543; J2704; J3010; J3490; J7030; J7050; P9045; A9270

== ENCOUNTER 2024-09-27 03:16 | Emergency (ER) | payer BC, SELFPAY ==
[2024-09-27 03:17] VITALS: BP 132/69; PULSE 95; RESP 18; TEMP 36.8; O2SAT 96; BMI 41.5
--- NOTE | 2024-09-27 03:34 | PD.EDRME ---
Rapid Medical Screening Exam RME Arrival date/time: 09/27/24 03:16 39 yo f present to ED for c/o of flank pain I have greeted and performed a focused initial assessment of this patient. A comprehensive ED assessment and evaluation of the patient, analysis of all test results, and completion of the medical decision making process will be conducted by additional ED providers. Chief Complaint: Urogenital-Female Vital signs: Vital Signs Temperature 98.2 F 09/27/24 03:17 Pulse Rate 95 09/27/24 03:17 Respiratory Rate 18 09/27/24 03:17 Blood Pressure 132/69 H 09/27/24 03:17 Pulse Oximetry (%) 96 09/27/24 03:17 Oxygen Delivery Method Room Air 09/27/24 03:17
[2024-09-27 04:53] LABS: Collection Type, Urine Voided
[2024-09-27 05:07] LABS: Bacteria,Urine 1+; Bilirubin,Urine Negative (Negative); Blood,Urine 1+ (Negative); Clarity,Urine Turbid (Clear/Hazy); Color,Urine Yellow (Lt Yel-Yel); Glucose, Urine Negative (Negative); Ketones,Urine Negative (Negative); Leukocyte Esterase,Urine Positive (Negative); Nitrite,Urine Negative (Negative); Protein,Urine 1+ (Neg - Trace); RBC,Urine 22 /hpf (0-3); Specific Gravity,Urine 1.019 (1.001-1.035); Squamous Epithelial Cell,Urine 24 /hpf (0-5); Urobilinogen,Urine Negative mg/dL (0.0-1.0); WBC,Urine 74 /hpf (0-5)
[2024-09-27 05:20] LABS: HCG Qualitative,Urine Negative
--- NOTE | 2024-09-27 05:30 | PD.EDFMALE ---
ED Female Urogenital RME/HPI General Chief complaint: Urogenital-Female Stated complaint: I THINK I HAVE A BAD UTI, BACK PAIN Time Seen by Provider: 09/27/24 05:28 Arrival date/time: 09/27/24 03:16 39 year old female present to emergency room with c/o of left flank pain and UTI symptoms for 3 days. patient report similar history of UTI in the past. SEVERITY: Symptoms are described as being severe with limitations on activities of daily living CONTEXT: The patient is unable to identify any inciting events. DURATION/TIMING: The symptoms started approximately 3 days ago and have been constant since and have been progressive getting worse. ASSOCIATED SYMPTOMS: dysuria, urgency,frequency and flank pain MODIFYING FACTORS: The patient is unable to identify any alleviating or aggravating symptoms. PERTINENT ROS: no fevers, no cough, no chest pain/shortness of breath no nausea,vomiting, diarrhea, no dizziness/headache no rash no loc/syncope episode REVIEW OF SYSTEMS: See History of Present Illness - with the exception of those mentioned in the history of present illness, all other systems reviewed and reported as negative GENERAL: In general the patient is awake, interactive, in an emergency department gurney. HEAD/EYES/EARS/NOSE/THROAT: normo-cephalic, atraumatic, mucus membranes are moist, anicteric, palpebral conjunctiva is pink, trachea is midline. CARDIOVASCULAR: regular rate and regular rhythm, no murmurs, heart sounds are not distant, strong pulses in all four extremities that are equal and symmetric bilateral upper and lower extremities, normal capillary refill. CHEST/PULMONARY: normal chest rise and fall, good air movement, clear to auscultation bilaterally, normal inspiratory to expiratory ratios without evidence of respiratory distress. NECK: No midline/Paraspinal tenderness, no step off ROM/Strenght intact No Kernig and bruzinski sign. No trauma ABDOMEN: soft, not tender, no masses appreciated BACK: normal range of motion without pain. NEUROLOGICAL: cranio-facial features are symmetric, moves all four extremities equally without obvious limitations or weakness. EXTREMITY: no tenderness to palpation over the long bones or large joints of the bilateral upper and lower extremities, no joint swelling, no joint erythema, no signs of trauma, no unilateral leg swelling and no peripheral edema. SKIN: warm, dry, well-perfused, no jaundice, no rash, no telangiectasias or petechia. PSYCH: calm, cooperative, no evidence of psychosis or agitation RME / HPI RME / HPI Narrative: 09/27/24 03:16 39 yo f present to ED for c/o of flank pain I have greeted and performed a focused initial assessment of this patient. A comprehensive ED assessment and evaluation of the patient, analysis of all test results, and completion of the medical decision making process will be conducted by additional ED providers. Related Data Previous Rx's ?Medication ?Instructions ?Recorded oxycodone-acetaminophen 5 mg-325 1 tab PO Q6H PRN pain #10 tabs 04/17/ mg tablet (Percocet) cephalexin 500 mg capsule 500 mg PO QID #40 caps 09/27/24 Allergies Allergy/AdvReac Type Severity Reaction Status Date / Time No Known Allergies Allergy Verified 09/27/24 03:17 Course Course Course Narrative: Not . Unlikely TOA, Ovarian Torsion, PID, Low suspicion for Infected Urolithiasis, AAA, Cholecystitis, Pancreatitis, SBO, Appendicitis, or other acute abdomen. Rx: Keflex 500mg QID for 10 days ( UTI vs early kidney infection) Disposition: Discharge home. SRP discussed. Advise follow up with primary care provider within 24-72 hours. Quality Measures none Orders Category Date Time Status HCG Qualitative,Urine Stat Lab 09/27/24 04:41 Completed UA [Urinalysis] Stat Lab 09/27/24 04:41 Completed Urine Culture Stat Lab 09/27/24 04:41 Received cephALEXin [Keflex] Med 09/27/24 05:29 Discontinued 500 mg PO X1 ONE Vital Signs Vital signs: Vital Signs Temperature 98.2 F 09/27/24 03:17 Pulse Rate 95 09/27/24 03:17 Respiratory Rate 18 09/27/24 03:17 Blood Pressure 132/69 H 09/27/24 03:17 Pulse Oximetry (%) 96 09/27/24 03:17 Oxygen Delivery Method Room Air 09/27/24 03:17 Urogenital - Female Patient data External records reviewed:: [facility] previous records Clinical information provided by:: patient Social determinants that could affect healthcare access:: none Patient has the following chronic illnesses:: UTI How is presenting disease/condition affected by chronic disease/condition?: exacerbated by Evaluation data The following diagnostics were reviewed and interpreted by me:: lab results Lab and/or radiology exams considered but not ordered:: n/a Interpretation Summary: UA: + leuks, wbc/bacteria hcg: negative Medications / Prescriptions Medications or Prescriptions considered but not ordered:: na Medication administrations:: Medication Administration History Discontinued Medications Cephalexin HCl (Cephalexin 250 Mg Capsule) 500 mg PO X1 ONE Stop: 09/27/24 05:30 as stated above Consultations Consultation(s) initiated? (list below): No Diagnosis Urogenital Female Differential Diagnosis: urinary tract infection, cystitis and other (kidney infection, muscle strain ) Most likely diagnosis given after review of the tests above:: UTI early kidney infection Admission Indicated Admission indicated?: not indicated Admission Request Was there a request for admission?: No Disposition Plan Disposition Plan: Discharge Discharge Attestation Discharge Attestation: The patient and all family members were given an opportunity to ask questions and understood the discharge instructions. Discharge instructions specifically effects, indications for sooner follow up or return to the emergency department, and the expected course of current diagnosis. Patient condition: Stable Discharge Plan Plan Patient Disposition: HOME (Self Care) Health Concerns: Follow with PMD as directed Take tylenol or motrin as need Return to ED if sx worsen Prescriptions/Referrals Prescriptions/Med Rec: New cephalexin 500 mg capsule 500 mg PO QID Qty: 40 0RF No Action oxycodone-acetaminophen [Percocet] 5-325 mg tablet 1 tab PO Q6H MDD 6 tabs PRN (Reason: pain) Qty: 10 0RF Referrals: María Whiting NP [Primary Care Provider] - In 1 week Problem List Clinical Impression: UTI (urinary tract infection) Patient/Caregiver Discharge Instructions Education Materials: ED CYSTITIS Female Adult Print Language: Ukrainian Stand Alone Forms: Elva Award Info., Patient Portal Info Letter
[2024-09-27] MEDS: cephALEXin 250 MG CAPSULE 500 MG PO (05:49)
[2024-09-27 05:51] VITALS: BP 127/64; PULSE 78; RESP 19; TEMP 36.6; O2SAT 99
== END 2024-09-27 05:52 | disposition home or self-care (01) ==
PROVIDERS: Physician Assistant; Emergency Provider Emergency Medicine; PCP Nurse Practitioner Family
DX: N39.0 Urinary tract infection, site not specified (principal)
CPT/HCPCS: 81001; 81025; 87077; 87086; 87186; 99283; A9270